=== PATIENT | female | born 1955 | race African-American/Black ===

== ENCOUNTER 2021-12-21 19:53 | Emergency (ER) | payer MEDICARE, SELFPAY ==
--- NOTE | ~2021-12-21 | CT_ITS ---
EXAMINATION: CT abdomen pelvis w con DATE: 12/21/2021 22:02 INDICATION: Abdominal pain. TECHNIQUE: Computed tomography (CT) of the abdomen and pelvis was performed with 100 mL Omnipaque 350 intravenous contrast. Automated exposure control and iterative reconstruction technique were employe d. The dose-length product was 357.56 mGy-cm. COMPARISON: None. FINDINGS: The visualized portions of the lung bases demonstrate mild atelectasis. There is a pneumato isela in right lower lobe. There is a trace right pleural effusion. The heart size is normal. There is a trace pericardial effusion. There are cysts in the liver measuring up to 9 mm. There is a 4 mm cys t in the spleen. The gallbladder, pancreas, and adrenal glands are normal. There are cysts in the kid neys measuring up to 4.2 cm on the right. There are approximately 8 stones in right kidney measuring up to 4 mm. There is urothelial thickening in right renal pelvis, consistent with pyelitis. There are greater than 10 stones in left kidney measuring up to 4 mm. There are no dilated loops of bowel. The appendix is normal. There is a left inguinal hernia containing ascites. There is trace pelvic ascite s. There are no pathologically enlarged lymph nodes. There is thoracolumbar dextroscoliosis. 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 There is severe lumbar spondylosis. IMPRESSION: 1. Right-sided pyelitis. 2. Bilateral nonobstructing kidney stones. 3. Left inguinal hernia containing ascites. Reviewed, dictated and finalized at location A. [facility]
[2021-12-21 20:10] VITALS: BP 135/38; PULSE 65; RESP 18; TEMP 36.4; O2SAT 100
--- NOTE | 2021-12-21 20:57 | ED.GENADULT ---
HPI - General Adult General Chief complaint: Unspecified Stated complaint: SERIOUS ABDOMINAL PAIN Time Seen by Provider: 12/21/21 20:49 History of Present Illness HPI narrative: 66-year-old female presenting to the emergency department for evaluation of also abdominal discomfort with associated belching and farting . Patient states she was seen at an outside emergency department treated with GI cocktail and had minimal improvement. Patient states her symptoms started a few days ago and she describes a burning sensation that travels from her lower abdomen up. Patient states she has had decreased p.o. intake over the last few days and has had excessive burping and a super fart . Patient's daughter is also admitted to the ICU and she was asking about how to get all of her daughter. Related Data Allergies Allergy/AdvReac Type Severity Reaction Status Date / Time No Known Allergies Allergy Verified 12/21/21 23:21 Review of Systems Review of Systems: CONSTITUTIONAL: Denies fever, chills, or sweats. EYES: Denies visual changes, redness, or discharge. ENT: Denies rhinorrhea, congestion, sore throat, or otalgia. CARDIOVASCULAR: Denies chest pain, palpitations, or edema. RESPIRATORY: Denies cough or dyspnea. GASTROINTESTINAL: See HPI GENITOURINARY: Denies dysuria or hematuria. SKIN: Denies rash or itching. MUSCULOSKELETAL: Denies back pain, joint pain, or myalgia. NEUROLOGIC: Denies headache, numbness, or weakness. Exam Narrative: APPEARANCE: Well appearing, no pain, no distress, well-nourished. HEAD: normocephalic, atraumatic. EYES: PERRLA/EOMI, conjunctivae clear. NOSE: Normal no drainage NECK: Supple. No adenopathy, no masses. RESPIRATORY: Airway patent, respirations nonlabored. Clear to auscultation bilaterally, no rales, rhonchi, wheezing. CARDIOVASCULAR: Regular rate and rhythm without murmurs rubs or gallops. ABDOMINAL: Soft, nondistended, normal bowel sounds, minimal tenderness to palpation MUSCULOSKELETAL: Moves all extremities. Strength/ROM intact, No edema, No calf tenderness. NEURO: Alert. Cranial nerves II through XII intact. Grossly intact SKIN: Warm, dry. Normal Color Course Course Emergency Course: Patient's vitals within normal limits. Patient was afebrile with no leukocytosis. CT scan showed evidence of right-sided pyelitis but UA showed no evidence of urinary tract infection. Patient was after the results of her work-up and was comfortable with the plan for discharge and close follow-up. Vital Signs Vital signs: Vital Signs Temperature 97.5 F L 12/21/21 20:10 Pulse Rate 65 12/21/21 20:10 Respiratory Rate 18 12/21/21 20:10 Blood Pressure 135/38 L 12/21/21 20:10 Pulse Oximetry 100 12/21/21 20:10 Oxygen Delivery Room Air 12/21/21 20:10 Temperature 97.5 F L 12/21/21 20:10 Pulse Rate 54 L 12/21/21 23:31 Respiratory Rate 16 12/22/21 00:45 Blood Pressure 167/112 H 12/21/21 23:31 Pulse Oximetry 100 12/21/21 23:31 Oxygen Delivery Room Air 12/21/21 20:10 Medical Decision Making Vital Signs Vital Signs: Vital Signs Temperature 97.5 F L 12/21/21 20:10 Pulse Rate 65 12/21/21 20:10 Respiratory Rate 18 12/21/21 20:10 Blood Pressure 135/38 L 12/21/21 20:10 Pulse Oximetry 100 12/21/21 20:10 Oxygen Delivery Room Air 12/21/21 20:10 Temperature 97.5 F L 12/21/21 20:10 Pulse Rate 54 L 12/21/21 23:31 Respiratory Rate 16 12/22/21 00:45 Blood Pressure 167/112 H 12/21/21 23:31 Pulse Oximetry 100 12/21/21 23:31 Oxygen Delivery Room Air 12/21/21 20:10 Lab Data Result diagrams: 12/21/21 21:19 12/21/21 21:19 Labs: Lab Results 12/21/21 12/21/21 12/21/21 Range/Units 21:19 21:19 21:19 WBC 4.0 L (4.5-10.0) K/mm3 RBC 4.01 L (4.2-5.4) M/mm3 Hgb 11.8 L (12.0-15.0) g/dL Hct 35.9 L (37.0-47.0) % MCV 89.5 (80-100) fl MCH 29.4 (26-34) pg MCHC 32.9 (32-36) g/dl RDW
[2021-12-21 21:29] LABS: Eosinophils Absolute Auto 0.2 K/mm3 (0-0.3); Eosinophils Percent Auto 4.7 % (0-4.4); Hematocrit 35.9 % (37.0-47.0); Hemoglobin 11.8 g/dL (12.0-15.0); Immature Granulocyte Absolute 0.01 K/mm3 (0.00-0.031); Immature Granulocyte Percent A 0.2 % (0-0.5); Immature Platelet Fraction Pct 8.2 % (0.9-11.2); Lymphocytes Absolute Auto 1.32 K/mm3 (0.9-3.2); Lymphocytes Percent Auto 32.7 % (18.3-44.2); Mean Corpuscular HGB Conc 32.9 g/dl (32-36); Mean Corpuscular Hemoglobin 29.4 pg (26-34); Mean Corpuscular Volume 89.5 fl (80-100); Mean Platelet Volume 11.7 fl (7.4-10.4); Monocytes Absolute Auto 0.3 K/mm3 (0.1-0.6); Monocytes Percent Auto 7.9 % (2.6-8.5); Neutrophils Absolute Auto 2.2 K/mm3 (1.3-6.7); Neutrophils Percent Auto 53.5 % (45.5-73.1); Platelet Count Result 129 k/mm3 (150-375); Red Blood Count 4.01 M/mm3 (4.2-5.4); Red Cell Distribution Width 12.8 % (11.5-14.5)
[2021-12-21 21:36] LABS: Lactic Acid Reflex 0.8 mmol/L (0.7-2.0)
[2021-12-21 21:43] LABS: Alanine Aminotransferase 29 U/L (6-35); Albumin Level 4.3 g/dL (3.5-5.1); Alkaline Phosphatase 70 U/L (38-126); Anion Gap 4 mmol/L (8-16); Aspartate Amino Transferase 33 U/L (14-36); Bilirubin,Total 0.6 mg/dL (0.2-1.3); Blood Urea Nitrogen 22 mg/dL (7-17); Calcium 9.9 mg/dL (8.4-10.2); Carbon Dioxide 28 mmol/L (22-30); Chloride 108 mmol/L (98-107); Estimated CRCL calculation 49 ml/min; Estimated Glomerular Filt Rate > 60; Glucose 91 mg/dL (65-110); Lipase 91 U/L (23-300); Sodium 140 mmol/L (137-145)
[2021-12-21 22:20] VITALS: BP 160/100; PULSE 68; RESP 12; O2SAT 98
[2021-12-21 23:18] VITALS: PULSE 53; O2SAT 100
[2021-12-21 23:31] VITALS: BP 167/112; PULSE 54; O2SAT 100
[2021-12-22 00:21] LABS: Appearance Urine Clear (Clear); Bilirubin Urine Negative (Negative); Blood Urine Negative (Negative); Color Urine Yellow (Yellow); Glucose Urine UA Negative (Negative); Ketones Urine Negative (Negative); Leukocyte Esterase Ur 1+ LEU/UL (Negative); Nitrate Urine Negative (Negative); Protein Urine Negative (Negative); Specific Grav Ur 1.015 (1.001-1.035); Urobilinogen Urine 0.2 mg/dL (<2.0)
[2021-12-22 00:36] LABS: Mucus Urine Rare /lpf; Squamous Epithelial Cell Urine Occasional /hpf (Few)
[2021-12-22 00:44] LABS: Add Urine Microscopic? YES
[2021-12-22 00:45] VITALS: RESP 16
== END 2021-12-22 00:45 | disposition home or self-care (01) ==
PROVIDERS: Emergency Provider Emergency Medicine
DX: R10.9 Unspecified abdominal pain (principal); N12 Tubulo-interstitial nephritis, not specified as acute or chronic; N20.0 Calculus of kidney; K40.90 Unilateral inguinal hernia, without obstruction or gangrene, not specified as recurrent; R18.8 Other ascites; R53.83 Other fatigue
CPT/HCPCS: 36415; 74177; 80053; 81001; 83605; 83690; 85025; 85055; 87086; 99284; Q9967